=== PATIENT | female | born 1990 | race Caucasian/White ===

== ENCOUNTER 2017-07-02 12:00 | Emergency (ER) | payer OTHER ==
[~2017-07-02] VITALS: Ht 172.7 cm; Wt 69.7 kg
[~2017-07-02 12:00] MED LIST: ADDERALL XR 2020 MG PO; AMBIEN10 M1; AMBIEN10 MG PO; CLONIDINE HCL0.1 MG PO; DEXILANT60 MG PO; EFFEXOR37.5 MG PO; ELAVIL10 MG PO; FLEXERIL10 MG; KLONOPIN0.5 M1 PO; NORCO 5/3251 TABLET PO; PERCOCET 7.51 TABLET PO; PREDNISONE10 M2; TOPAMAX25 MG PO; TORADOL10 MG PO; TRAZODONE HCL50 MG PO; TYLENOL WITH C1 EACH PO; VENTOLIN HFA18 GM IH; ZITHROMAX500 MG PO; ZOFRAN4 MG PO
[2017-07-02 12:48] LABS: HEMATOCRIT 38.7 % (36.0-46.0); HEMOGLOBIN 12.9 G/DL (11.9-15.5); MCH 27.6 PG (29.0-34.0); MCHC 33.3 G/DL (30.0-36.0); MCV 82.9 FL (83-99); PLATELET COUNT 254 K/uL (156-360); RBC DIS.WIDTH-CV 13.2 % (11.8-14.6); RBC DIS.WIDTH-SD 39.7 % (39-53); RED BLOOD COUNT 4.67 M/uL (3.80-5.20); WHITE BLOOD COUNT 5.1 K/uL (4.1-10.2)
[2017-07-02 13:04] LABS: ALBUMIN 4.3 g/dL (3.2-4.8)
[2017-07-02 13:05] LABS: CHLORIDE 104 mEq/L (99-109); POTASSIUM 3.6 mEq/L (3.7-5.4); SODIUM 138 mEq/L (136-147)
[2017-07-02 13:07] LABS: GLUCOSE 87 mg/dL (70-99); TOTAL PROTEIN 7.9 g/dL (6.4-8.3)
[2017-07-02 13:09] LABS: TOTAL BILIRUBIN 0.9 mg/dL (0.0-1.0)
[2017-07-02 13:10] LABS: ALKALINE PHOSPHATASE 77 IU/L (3-129); SERUM ETHYL ALCOHOL < 10 mg/dL
[2017-07-02 13:11] LABS: CREATININE 0.8 mg/dL (0.6-1.3); GFR ESTIMATE (CALCULATED) > 59 mL/min/
[2017-07-02 13:12] LABS: AST (GOT) 13 IU/L (2-34); UREA NITROGEN (BUN) 12 mg/dL (9-23)
[2017-07-02 13:14] LABS: ALT (GPT) 8 IU/L (3-49)
[2017-07-02 13:21] LABS: QUANTITATIVE HCG < 4.0 MIU/ML
[2017-07-02] MEDS ORDERED: ATARAX,VISTARIL50 MG PO (13:23)
[2017-07-02 13:51] LABS: APPEARANCE CLEAR ((CLEAR)); BILIRUBIN NEGATIVE; BLOOD NEGATIVE; COLOR STRAW ((YELLOW)); GLUCOSE (STRIP) NEGATIVE; KETONES NEGATIVE; LEUKOCYTES NEGATIVE; NITRITE NEGATIVE; PROTEIN (STRIP) NEGATIVE; SPECIFIC GRAVITY 1.005 (1.000-1.030); UROBILINOGEN 0.2 MG/DL (0.2-1.0)
[2017-07-02 13:57] VITALS: BP 128/70
[2017-07-02 13:57] LABS: PHENCYCLIDINE NEGATIVE (25 ng/mL); THC CANNABINOIDS NEGATIVE (50 ng/mL)
[2017-07-02 13:58] LABS: AMPHETAMINE NEGATIVE (500 ng/mL); BARBITURATES NEGATIVE (200 ng/mL); BENZODIAZEPINES NEGATIVE (150 ng/mL); BUPRENORPHINE NEGATIVE (10 ng/mL); COCAINE PRESUMPTIVE POSITIVE (150 ng/mL); METHADONE NEGATIVE (200 ng/mL); METHAMPHETAMINE NEGATIVE (500 ng/mL); OPIATES (MORPHINE) NEGATIVE (100 ng/mL); OXYCODONE NEGATIVE (100 ng/mL); PROPOXYPHENE NEGATIVE (300 ng/mL); TRICYCLIC ANTIDEPRESSANTS NEGATIVE (300 ng/mL)
== END 2017-07-02 14:01 | disposition home or self-care (01) ==
LOC: EME 12:00
PROVIDERS: Emergency Medicine
DX: F32.9 Major depressive disorder, single episode, unspecified (principal); F19.10 Other psychoactive substance abuse, uncomplicated; F43.25 Adjustment disorder with mixed disturbance of emotions and conduct; F11.20 Opioid dependence, uncomplicated; M06.9 Rheumatoid arthritis, unspecified; Z72.0 Tobacco use; Z86.010 Personal history of colon polyps; Z88.0 Allergy status to penicillin
CPT/HCPCS: 80053; 81003; 84702; 84999; 85027; 90839; 99281; 99285; G0480; Q0177